=== PATIENT | male | born 1960 | race Caucasian/White ===

== ENCOUNTER → 2020-04-02 | Outpatient (CLI) | payer OTHER, BC ==
--- NOTE | 2020-04-02 18:31 | US ---
EXAMINATION TYPE: US prostate transrectal DATE OF EXAM: 04/02/2020 COMPARISON: NONE CLINICAL HISTORY: R97.20 ELEVATED PSA. External Hemorrhoids per patient. This examination was performed using the transrectal probe. EXAM MEASUREMENTS: Gland Size: 3.9 x 4.9 x 2.6cm Volume: 26.54ml Predicted PSA: 3.2ng/ml Actual PSA (if available):4.1ng/ml Initial images show seminal vesicles to appear symmetric and felt within normal limits. Prostate glan d is heterogeneous in appearance and measures upper limits of normal in size with some scattered calc ifications. No Suspicious hypoechoic nodules. IMPRESSION: As above. No suspicious nodules identified. Predicted PSA = volume x 0.12 ng/ml Calculated Volume = 0.5236 x L x W x H
== END | disposition home or self-care (01) ==
LOC: RADUSWWP 09:23
PROVIDERS: ATTEND Family Medicine
DX: R97.20 Elevated prostate specific antigen [PSA] (principal)
CPT/HCPCS: 76872